=== PATIENT | male | born 1965 | race Hispanic/Latino ===

== ENCOUNTER 2021-08-04 07:22 | Day surgery (SDC) | payer OTHER ==
[2021-08-03 14:07] VITALS: BP 142/76
[2021-08-04] VITALS (11 sets, daily range): BP systolic 98–151; BP diastolic 58–81
[~2021-08-04] VITALS: Ht 165.1 cm; Wt 85.3 kg
[~2021-08-04 07:22] MED LIST: AMOX-429 PO; LOSA100T58 PO; SIMV-46 PO
[2021-08-04] MEDS ORDERED: CEFTRIAXONE 1G VIAL IVP ONE (08:00)
[2021-08-04] MEDS ORDERED: LACTATED RINGERS 1000ML 1,000 ML IV ONE (08:06)
[2021-08-04] MEDS ORDERED: AMLO-257 PO (09:12)
[2021-08-04] MEDS ORDERED: LIDOCAINE HCL 2% PF 20 ML JEL DISP.SYRIN MM ONE (09:41)
[2021-08-04] MEDS ORDERED: FENTANYL CITRATE PF 50 MCG/1 ML 2ML VIAL ONE (09:46)
[2021-08-04] MEDS ORDERED: LIDOCAINE HCL MPF 1% 5ML VIAL ONE (09:46)
[2021-08-04] MEDS ORDERED: PROPOFOL 10 MG/ML 20ML VIAL IV ONE (09:46)
[2021-08-04] MEDS ORDERED: MIDAZOLAM HCL 1 MG/ML 2ML VIAL ONE ×2 (09:46→10:03)
== END 2021-08-04 11:30 | disposition home or self-care (01) ==
LOC: DAH 07:22
PROVIDERS: ATTEND Urology
DX: R97.20 Elevated prostate specific antigen [PSA] (principal); Z20.822 Contact with and (suspected) exposure to COVID-19; I10 Essential (primary) hypertension; E66.9 Obesity, unspecified; Z85.3 Personal history of malignant neoplasm of breast; Z85.46 Personal history of malignant neoplasm of prostate
CPT/HCPCS: 55700; 76872; 87635; A4215 ×2; A4221; A4222; A4223; A4649; A4663; A6260; C9803; J0696; J2250 ×2; J2704; J3010; J3490; J7120